=== PATIENT | female | born 1985 | race American Indian/Alaskan Native ===

== ENCOUNTER 2021-10-31 10:52 | Emergency (ER) | payer MEDICAID ==
--- NOTE | 2021-10-31 11:10 | Emergency Department Report ---
ED Psych HPI - General Chief Complaint: Psych Stated Complaint: MH EVAL Time Seen by Provider: 10/31/21 11:08 Source: patient, EMS Mode of arrival: Stretcher Limitations: No Limitations - History of Present Illness Initial Comments: Chief complaint: "I just need my medication." HPI: This is a 35-year-old female with history of bipolar disorder presents via EMS for medication refill. She did not have a transportation. Consequently she called normal for transfer. She denies suicidal homicidal ideation. She denies hallucinations. Patient was registered under another patient's name. . Patient name Jacqueline. Catherine Mehta #[id number]. Labs obtained today include CBC chemistry serum toxicology all within normal limits. MD Complaint: other (Needs medication refill history of bipolar disorder) -: unknown Associated Psychiatric Symptoms: none Quality: constant Improves With: none Worsens With: none Context: not taking psychiatric Associated Symptoms: denies other symptoms Treatments Prior to Arrival: none - Related Data Previous Rx's Medication Instructions Recorded Last Taken Type ARIPiprazole [Abilify] 20 mg PO DAILY #30 10/31/21 Unknown Rx Sertraline [Zoloft] 100 mg PO DAILY #30 10/31/21 Unknown Rx traZODone [Desyrel] 100 mg PO QHS #30 10/31/21 Unknown Rx Allergies Allergy/AdvReac Type Severity Reaction Status Date / Time No Known Allergies Allergy Verified 10/31/21 10:57 ED Review of Systems ROS: Stated complaint: MH EVAL Other details as noted in HPI Comment: All other systems reviewed and negative Constitutional: denies: chills, fever, malaise Respiratory: denies: cough, shortness of breath Cardiovascular: denies: chest pain Gastrointestinal: denies: abdominal pain, nausea, vomiting Psychiatric: suicidal thoughts. denies: anxiety, depression, auditory hallucinations, visual hallucinations, homicidal thoughts ED Past Medical Hx - Past Medical History Previous Medical History?: Yes Hx Psychiatric Treatment: Yes (Bipolar disorder) - Surgical History Past Surgical History?: Yes Additional Surgical History: section - Family History Family history: hypertension - Social History Smoking Status: Never Smoker Substance Use Type: None - Medications Home Medications: Home Medications Medication Instructions Recorded Confirmed Last Taken Type ARIPiprazole [Abilify] 20 mg PO DAILY #30 10/31/21 Unknown Rx Sertraline [Zoloft] 100 mg PO DAILY #30 10/31/21 Unknown Rx traZODone [Desyrel] 100 mg PO QHS #30 10/31/21 Unknown Rx ED Physical Exam - General Limitations: No Limitations General appearance: alert, in no apparent distress - Head Head exam: Present: atraumatic, normocephalic - Eye Eye exam: Present: normal appearance - ENT ENT exam: Present: mucous membranes moist - Neck Neck exam: Present: normal inspection, full ROM - Respiratory Respiratory exam: Present: normal lung sounds bilaterally. Absent: respiratory distress, wheezes, rales, rhonchi - Cardiovascular Cardiovascular Exam: Present: regular rate, normal rhythm, normal heart sounds. Absent: systolic murmur, diastolic murmur, rubs, gallop - GI/Abdominal GI/Abdominal exam: Present: soft, normal bowel sounds. Absent: distended, tenderness, guarding, rebound - Extremities Exam Extremities exam: Present: normal inspection - Back Exam Back exam: Present: normal inspection - Neurological Exam Neurological exam: Present: alert, oriented X3 - Psychiatric Psychiatric exam: Present: normal affect, normal mood - Skin Skin exam: Present: warm, dry, intact, normal color. Absent: rash ED Course Vital Signs 10/31/21 11:43 O2 Sat by Pulse 99 Oximetry ED Medical Decision Making - Lab Data Result diagrams: 10/31/21 11:26 10/31/21 11:26 - Medical Decision Making This is a 36-year-old female with history of bipolar disorder. I highly appreciate the assistance of our mental health team who provided prescriptions for Zoloft trazodone and Abilify. Patient also given outpatient resources. CBC chemistry serum toxicology was normal limits. Coronavirus PCR negative. Critical care attestation.: If time is entered above; I have spent that time in minutes in the direct care of this critically ill patient, excluding procedure time. ED Disposition Clinical Impression: Bipolar disorder Disposition: HOME / SELF CARE / HOMELESS Is pt being admited?: No Does the pt Need Aspirin: No Condition: Stable Additional Instructions: Professional and Agency Contacts To help [facility](24/02) [place] Crisis Line: Suicide Prevention Line: Crisis Text Line: Text START to [phone] Emergency: 911 Outpatient COMMUNITY Behavioral Health Resources: RICHARD: [facility] [address] [place], [place] [address] MAGALI: [facility] [address] [place] [address] VINAY: [facility] - [address] [place] [address] Friday thru Friday - 8am - 5pm SALOME: [facility] Address: [address], [place] [address] YANEZ: [facility] Address: [address] [place] [address] Friday thru Friday- 7am-2pm [facility] Address: [address] [place] [address] Friday thru Friday: 8:30AM-5PM Prescriptions: traZODone [Desyrel] 100 mg PO QHS #30 ARIPiprazole [Abilify] 20 mg PO DAILY #30 Sertraline [Zoloft] 100 mg PO DAILY #30 Referrals: PRIMARY CARE, [Primary Care Provider] - 3-5 Days
[2021-10-31 11:49] LABS: Basophils % (Auto) 0.3 % (0.0-1.8); Eosinophils % (Auto) 0.4 % (0.0-4.3); Hematocrit 37.9 % (30.3-42.9); Lymphocytes # (Auto) 1.6 K/mm3 (1.2-5.4); Lymphocytes % (Auto) 17.2 % (13.4-35.0); Mean Corpuscular HGB Conc 32 % (30-34); Mean Corpuscular Volume 83 fl (79-97); Monocytes # (Auto) 0.4 K/mm3 (0.0-0.8); Monocytes % (Auto) 4.4 % (0.0-7.3); Platelet Count 399 K/mm3 (140-440); Red Blood Count 4.59 M/mm3 (3.65-5.03); Red Cell Distribution Width 13.6 % (13.2-15.2)
[2021-10-31 12:03] LABS: Blood Urea Nitrogen 10 mg/dL (7-17); Calcium 9.5 mg/dL (8.4-10.2); Hemolysis Index 9
[2021-10-31 12:18] LABS: BUN/Creatinine Ratio 14
--- NOTE | 2021-10-31 12:19 | Consultation ---
History of Present Illness - Reason for Consult Consult date: 10/31/21 Reason for consult: med refill - History of Present Psychiatric Illness The patient was seen today. She is calm, cooperative and pleasant. She is lucid. She says she is out of her meds and could not get back in to get them refilled. The patient says she has a history of bipolar and takes zoloft 100 daily, abilify 20 daily, and trazodone 100 daily. She denies SI/HI or hallucinations of any kind. She also denies any past attempts of suicide. She says she lives with her children and her mom. She denies any illicit drug use, alcohol or nicotine. PAST PSYCHIATRIC HISTORY Diagnoses: Bipolar Suicide attempts or Self-harm behavior: Denies Prior psychiatric hospitalizations: Yes Substance Abuse history: Denies Previous psychiatric medications tried: zoloft, trazodone, abilify Outpatient treatment: yes PAST MEDICAL HISTORY: None reported Family Psychiatric History: None reported or documented SOCIAL HISTORY Living arrangement: states she lives with mom and children Marital status: Single REVIEW OF SYSTEMS Constitutional: Negative for weight loss ENT: Negative for stridor Respiratory: Negative for cough or hemoptysis All other systems reviewed and are negative MENTAL STATUS EXAMINATION General Appearance and Behavior: Age appropriate, good hygiene, wearing appropriate clothes, good eye contact, calm, cooperative Cooperation: Participating/engaged, but Guarded Psychomotor Behavior: Psychomotor normal Mood: Good Affect and affective range: congruent with stated mood Thought Process: goal directed Thought Content: None Speech: normal tone and pace Suicidal Ideation: Denies Homicidal Ideation: Denies Hallucinations: Denies Delusions: None elicited Impulse Control: Good Insight and Judgment: Good insight and judgment Memory: Good Attention: Attentive Orientation: Alert, oriented Assessment and Plan Hx of Bipolar Disorder Treatment Plan Zoloft 100mg po daily Trazodone 50mg po qhs Abilify 20mg po daily Medical: per primary Disposition: Do not recommend acute psychiatric inpatient treatment Will sing off. Thanks. Case staffed with Dr. Dominguez Medications and Allergies Allergies Allergy/AdvReac Type Severity Reaction Status Date / Time No Known Allergies Allergy Verified 10/31/21 10:57 Home Medications Medication Instructions Recorded Confirmed Last Taken Type ARIPiprazole [Abilify] 20 mg PO DAILY 10/31/21 10/31/21 Unknown History Sertraline [Zoloft] 100 mg PO DAILY 10/31/21 10/31/21 Unknown History traZODone [Desyrel] 100 mg PO QHS 10/31/21 10/31/21 Unknown History Mental Status Exam - Vital signs Last Vital Signs Temp Pulse Resp BP Pulse Ox 99 10/31/21 11:43 Results Result Diagrams: 10/31/21 11:26 10/31/21 11:26 Abnormal lab results 10/31/21 10/31/21 10/31/21 Range/Units 11:26 11:26 11:26 MCH 26 L (28-32) pg Seg Neutrophils % 77.7 H (40.0-70.0) % Glucose 101 H (65-100) mg/dL Acetaminophen 5.0 L (10.0-30.0) ug/mL All other labs normal.
[2021-10-31 14:04] VITALS: BP 111/75
== END 2021-10-31 13:51 | disposition home or self-care (01) ==
LOC: ED 10:52
DX: F31.9 Bipolar disorder, unspecified (principal); Z76.0 Encounter for issue of repeat prescription; Z20.822 Contact with and (suspected) exposure to COVID-19
CPT/HCPCS: 36415; 80048; 85025; 99284; U0003; 80320; G0480

== ENCOUNTER → 2022-02-14 | Emergency (ER) | payer MEDICAID ==
[2022-02-14 23:16] VITALS: BP 105/69
== END ==
LOC: ED 23:03
DX: Z76.0 Encounter for issue of repeat prescription (principal); Z53.21 Procedure and treatment not carried out due to patient leaving prior to being seen by health care provider